=== PATIENT | female | born 1975 | race Caucasian/White ===

== ENCOUNTER 2018-10-27 02:59 | Observation (INO) | payer BC, OTHER ==
[2018-10-27 07:14] LABS: ABSOLUTE BASOPHILS # (AUTO) 0.1 10^3/uL (0.0-0.2); ABSOLUTE EOSINOPHILS # (AUTO) 0.1 10^3/uL (0.0-0.6); ABSOLUTE LYMPHOCYTES (AUTO) 2.2 10^3/uL (0.5-4.7); ABSOLUTE MONOCYTES (AUTO) 0.8 10^3/uL (0.1-1.4); ABSOLUTE NEUT (AUTO) 12.1 10^3/uL (1.7-8.2); BASOPHILS % (AUTO) 0.7 % (0-2); EOSINOPHILS % (AUTO) 0.5 % (0-6); HEMATOCRIT 43.1 % (36.0-47.0); HEMOGLOBIN 14.3 g/dL (12.0-15.5); LYMPHOCYTES % (AUTO) 14.5 % (13-45); MEAN CORPUSCULAR HEMOGLOBIN 29.9 pg (27.0-33.4); MEAN CORPUSCULAR HGB CONC 33.1 g/dL (32.0-36.0); MEAN CORPUSCULAR VOLUME 90 fl (80-97); MONOCYTES % (AUTO) 5.2 % (3-13); PLATELET COUNT 451 10^3/uL (150-450); RED BLOOD COUNT 4.78 10^6/uL (3.72-5.28); RED CELL DISTRIBUTION WIDTH 13.3 % (11.5-14.0); SEGMENTED NEUTROPHILS % (AUTO) 79.1 % (42-78); TOTAL CELLS COUNTED % (AUTO) 100 %; WHITE BLOOD COUNT 15.3 10^3/uL (4.0-10.5)
[2018-10-27 07:32] LABS: ALBUMIN 4.1 g/dL (3.5-5.0); ALKALINE PHOSPHATASE 93 U/L (38-126); ANION GAP 9 (5-19); ASPARTATE AMINO TRANSFERASE 19 U/L (14-36); BILIRUBIN,DIRECT 0.2 mg/dL (0.0-0.4); BILIRUBIN,TOTAL 0.3 mg/dL (0.2-1.3); BLOOD UREA NITROGEN 13 mg/dL (7-20); CALCIUM 9.4 mg/dL (8.4-10.2); CARBON DIOXIDE 25 mmol/L (22-30); CHLORIDE 105 mmol/L (98-107); GLUCOSE 123 mg/dL (75-110); POTASSIUM 4.7 mmol/L (3.6-5.0); TOTAL PROTEIN 6.9 g/dL (6.3-8.2)
[2018-10-27] MEDS ORDERED: NORMAL SALINE 1000 ML 1,000 ML IV ONE ×2 (07:48→12:14)
--- NOTE | 2018-10-27 07:50 | ER Document Report ---
Entered by SOLANGE JENKINS SCRIBE 10/27/18 0741 Acting as scribe for:SHARATH ROMERO MD ED GI/ - General Chief Complaint: Epigastric Pain Stated Complaint: STOMACH PAIN Time Seen by Provider: 10/27/18 07:06 Mode of Arrival: Ambulatory Information source: Patient Notes: Patient is a 43 year old female that presents to the emergency department today with complaints of abdominal pain which began yesterday at 1000. Patient states initially she thought it was "gas buildup" so she took some gas pills which did not relieve her symptoms. Patient states that as the day went on her pain became worse. Patient states her last menstrual period was x2 weeks ago and she is not on control but is sexually active. Patient denies any nausea, diarrhea, or vomiting. Patient mentions that she has not had a bowel movement in x2 days which is not normal for her. TRAVEL OUTSIDE OF THE [place] IN LAST 30 DAYS: No - Related Data Allergies/Adverse Reactions: No Known Allergies Allergy (Unverified 10/27/18 07:59) Past Medical History - General Information source: Patient - Social History Smoking Status: Former Smoker Cigarette use (# per day): No - 30 year 1 ppd history Frequency of alcohol use: Social Drug Abuse: None Occupation: [employer] Lives with: Family Family History: Reviewed & Not Pertinent Past Surgical History: Reports: Hx Section, Other - Right cataract surgery Review of Systems - Review of Systems Constitutional: No symptoms reported EENT: No symptoms reported Cardiovascular: No symptoms reported Respiratory: No symptoms reported Gastrointestinal: Abdominal pain, Constipation. denies: Diarrhea, Nausea, Vomiting Genitourinary: No symptoms reported Female Genitourinary: No symptoms reported Musculoskeletal: No symptoms reported Skin: No symptoms reported Hematologic/Lymphatic: No symptoms reported Neurological/Psychological: No symptoms reported -: Yes All other systems reviewed and negative Physical Exam - Vital signs Vitals: Temp Pulse Resp BP Pulse Ox 98.5 F 85 16 154/86 H 98 10/27/18 03:06 10/27/18 03:06 10/27/18 03:06 10/27/18 03:06 10/27/18 03:06 - Notes Notes: Physical Exam: General: Alert, appears well. HEENT: Normocephalic. Atraumatic. PERRL. Extraocular movements intact. Oropharynx clear. Neck: Supple. Non-tender. Respiratory: No respiratory distress. Clear and equal breath sounds bilaterally. Cardiovascular: Regular rate and rhythm. Abdominal: Obese. Minimal discomfort across RLQ, LLQ, and suprapubic areas, no upper abdominal tenderness. No distension. Normal Bowel Sounds. Back: No gross abnormalities. Extremities: Moves all four extremities. Upper extremities: Normal inspection. Normal ROM. Lower extremities: Normal inspection. No edema. Normal ROM. Neurological: Normal cognition. AAOx4. Normal speech. Psychological: Normal affect. Normal Mood. Skin: Warm. Dry. Normal color. Course - Vital Signs Vital signs: Temp Pulse Resp BP Pulse Ox 98.3 F 71 20 124/79 96 10/27/18 11:49 10/27/18 11:49 10/27/18 11:49 10/27/18 11:49 10/27/18 11:49 - Laboratory Result Diagrams: 10/27/18 07:02 10/27/18 07:02 Laboratory results interpreted by me: 10/27/18 10/27/18 10/27/18 07:02 07:02 07:59 WBC 15.3 H Plt Count 451 H Absolute Neuts (auto) 12.1 H Seg Neutrophils % 79.1 H Glucose 123 H Urine Blood MODERATE H - Diagnostic Test Radiology reviewed: Image reviewed, Reports reviewed - CT scan shows a stone in the gallbladder neck, without evidence of cholecystitis. There is no inflam matory reaction noted associated with the intestines. Gallbladder ultrasound shows the stone in the neck of the gallbladder without gallbladder wall thickening or pericholecystic fluid. - Consults Dr. Petersen Time consulted: 12:15 Consulted provider: will come to ER Discharge - Discharge Clinical Impression: Cholelithiasis Qualifiers: Cholelithiasis location: gallbladder Cholecystitis presence: without cholecystitis Biliary obstruction: without biliary obstruction Qualified Code(s): K80.20 - Calculus of gallbladder without cholecystitis without obstruction Leukocytosis Qualifiers: Leukocytosis type: unspecified Qualified Code(s): D72.829 - Elevated white blood cell count, unspecified Condition: Stable Disposition: ADMITTED INPATIENT Admitting Provider: Surgicalist Unit Admitted: Surgical Floor Scribe Attestation: 10/27/18 07:58 I personally performed the services described in the documentation, reviewed and edited the documentation which was dictated to the scribe in my presence, and it accurately records my words and actions. I personally performed the services described in the documentation, reviewed and edited the documentation which was dictated to the scribe in my presence, and it accurately records my words and actions.
[2018-10-27 08:17] LABS: APPEARANCE,URINE SLIGHTLY-CLOUDY; BILIRUBIN,URINE NEGATIVE (NEGATIVE); COLOR,URINE YELLOW; GLUCOSE, URINE NEGATIVE (NEGATIVE); KETONES,URINE NEGATIVE (NEGATIVE); LEUKOCYTE ESTERASE,URINE NEGATIVE (NEGATIVE); NITRITE,URINE NEGATIVE (NEGATIVE); PROTEIN,URINE NEGATIVE (NEGATIVE); URINE SPECIFIC GRAVITY 1.014; UROBILINOGEN,URINE NEGATIVE mg/dL (<2.0)
--- NOTE | 2018-10-27 09:23 | RADIOLOGY REPORT (SQ) ---
EXAM DESCRIPTION: CT ABD/PELVIS WITH IV ONLY COMPLETED DATE/TIME: 10/27/2018 8:29 am REASON FOR STUDY: Abdominal pain with leukocytosis COMPARISON: None. TECHNIQUE: CT scan of the abdomen and pelvis performed using helical scanning technique with dynamic intravenous contrast injection. No oral contrast. Images reviewed with lung, soft tissue, and bone windows. Reconstructed coronal and sagittal MPR images reviewed. Delayed images for evaluation of the urinary system also acquired. All images stored on PACS. All CT scanners at this facility use dose modulation, iterative reconstruction, and/or weight based d osing when appropriate to reduce radiation dose to as low as reasonably achievable (ALARA). [facility]: Dose Right [facility]: CareDose [facility]: Dose Right [facility]: Teradose 4D [facility]: OnTheGo Platforms CONTRAST TYPE AND DOSE: 100 cc Isovue 370- low osmolar. RENAL FUNCTION: GFR > 60. RADIATION DOSE: CT Rad equipment meets quality standard of care and radiation dose reduction techniq ues were employed. CTDIvol: 11.7 - 13.6 mGy. DLP: 1241 mGy-cm.. LIMITATIONS: None. FINDINGS: LOWER CHEST: No significant findings. No nodules or infiltrates. LIVER: Normal size. No masses. No dilated ducts. SPLEEN: Normal size. No focal lesions. PANCREAS: No masses. No significant calcifications. No adjacent inflammation or peripancreatic fluid collections. Pancreatic duct not dilated. GALLBLADDER: Large stone in the gallbladder neck. No inflammatory changes to suggest cholecystitis. ADRENAL GLANDS: No significant masses or asymmetry. RIGHT KIDNEY AND URETER: No solid masses. No significant calcifications. No hydronephrosis or hyd roureter. LEFT KIDNEY AND URETER: No solid masses. No significant calcifications. No hydronephrosis or hydr oureter. AORTA AND VESSELS: No aneurysm. No dissection. Renal arteries, SMA, celiac without stenosis. RETROPERITONEUM: No retroperitoneal adenopathy, hemorrhage or masses. BOWEL AND PERITONEAL CAVITY: No masses or inflammatory changes. No free fluid or peritoneal masses. APPENDIX: Normal. PELVIS: No mass. No free fluid. Normal bladder. ABDOMINAL WALL: No masses. No hernias. BONES: No significant or acute findings. OTHER: No other significant finding. IMPRESSION: Stone in the gallbladder neck. No inflammatory changes. TECHNICAL DOCUMENTATION: JOB ID: [id number] Quality ID # [id number]: Final reports with documentation of one or more dose reduction techniques (e.g., Au tomated exposure control, adjustment of the mA and/or kV according to patient size, use of iterative reconstruction technique) 2010 [employer]- All Rights Reserved Reading location - IP/workstation name: [email or web address]
--- NOTE | 2018-10-27 11:14 | RADIOLOGY REPORT (SQ) ---
EXAM DESCRIPTION: U/S ABDOMEN LIMITED W/O DOP COMPLETED DATE/TIME: 10/27/2018 10:41 am REASON FOR STUDY: abd pain, stone in GB neck COMPARISON: None. TECHNIQUE: Dynamic and static grayscale images acquired of the abdomen and recorded on PACS. Additio nal selected color Doppler and spectral images recorded. LIMITATIONS: None. FINDINGS: PANCREAS: No masses. Visualized pancreatic duct normal caliber. LIVER: No masses. Echotexture normal. LIVER VASCULATURE: Normal directional flow of the main portal vein and hepatic veins. GALLBLADDER: Stone in the gallbladder neck. Normal wall thickness. No pericholecystic fluid. ULTRASOUND-DETECTED BERGMAN'S SIGN: Negative. INTRAHEPATIC DUCTS AND COMMON DUCT: CBD and intrahepatic ducts normal caliber. No filling defects. INFERIOR VENA CAVA: Normal flow. AORTA: No aneurysm. RIGHT KIDNEY: Normal size. Normal echogenicity. No solid or suspicious masses. No hydronephrosis. No calcifications. PERITONEAL AND RIGHT PLEURAL SPACE: No ascites or effusions. OTHER: No other significant findings. IMPRESSION: Cholelithiasis. No evidence of acute cholecystitis. TECHNICAL DOCUMENTATION: JOB ID: [id number] [address]- All Rights Reserved Reading location - IP/workstation name: [email or web address]
[2018-10-27] MEDS ORDERED: CEFTRIAXONE 1 GM/D5W RTU 1 GM/50 ML RTUPB IV ONE (12:11)
[2018-10-27] MEDS ORDERED: MORPHINE SULFATE 10 MG/ML INJ IV PRN (16:52)
[2018-10-27] MEDS ORDERED: ONDANSETRON HCL INJ/PF 4 MG/2 ML SDV IV PRN (16:52)
--- NOTE | 2018-10-27 17:16 | PDOC H&P ---
History of Present Illness Admission Date/PCP: 10/27/18 13:21 Patient complains of: Right upper quadrant pain History of Present Illness: DALLIN CHANG is a 43 year old female healthy, who presents to the emergency room complaining of right upper quadrant pain intense nausea. The patient underwent a CT scan of the abdomen pelvis and ultrasound of the gallbladder revealed the presence of cholelithiasis with a gallstone impinged in the gallbladder neck. No evidence of acute cholecystitis. Her blood work was within normal limits except for an elevated white blood cell count of 15,000, her liver profile was normal. Past Medical History Psychiatric Medical History: Denies: Depression Past Surgical History Past Surgical History: Reports: Section, Other - Right cataract surgery Social History Lives with: Family Smoking Status: Former Smoker Number of Years Smokin Frequency of Alcohol Use: Rare Hx Recreational Drug Use: No Drugs: None Hx Prescription Drug Abuse: No Family History Family History: Reviewed & Not Pertinent Parental Family History Reviewed: No Children Family History Reviewed: No Sibling(s) Family History Reviewed.: No Medication/Allergy Home Medications: No Home Medications 10/27/18 Allergies/Adverse Reactions: No Known Allergies Allergy (Unverified 10/27/18 07:59) Physical Exam Vital Signs: Temp Pulse Resp BP Pulse Ox 97.5 F 70 20 112/68 96 10/27/18 14:42 10/27/18 14:42 10/27/18 14:42 10/27/18 14:42 10/27/18 11:49 Intake & Output 10/26/18 10/27/18 10/28/18 06:59 06:59 06:59 Intake Total 1129 Balance 1129 Weight 74.8 kg General appearance: PRESENT: no acute distress Head exam: PRESENT: atraumatic Eye exam: PRESENT: EOMI, PERRLA Ear exam: PRESENT: TM's normal bilaterally Mouth exam: PRESENT: moist, neck supple Neck exam: PRESENT: full ROM Pulses: PRESENT: normal carotid pulses GI/Abdominal exam: PRESENT: soft, tenderness - slight in the RUQ Rectal exam: PRESENT: deferred Extremities exam: PRESENT: full ROM Musculoskeletal exam: PRESENT: full ROM Neurological exam: PRESENT: alert, awake, oriented to person Psychiatric exam: PRESENT: appropriate affect Skin exam: PRESENT: warm Results Laboratory Results: 10/27/18 07:02 10/27/18 07:02 10/27/18 10/27/18 10/27/18 07:02 07:02 07:02 WBC 15.3 H RBC 4.78 Hgb 14.3 Hct 43.1 MCV 90 MCH 29.9 MCHC 33.1 RDW 13.3 Plt Count 451 H Seg Neutrophils % 79.1 H Sodium 138.5 Potassium 4.7 Chloride 105 Carbon Dioxide 25 Anion Gap 9 BUN 13 Creatinine 0.77 Est GFR ( Amer) > 60 Glucose 123 H Calcium 9.4 Total Bilirubin 0.3 AST 19 Alkaline Phosphatase 93 Total Protein 6.9 Albumin 4.1 Lipase 75.4 Serum HCG, Qual NEGATIVE Urine Color Urine Appearance Urine pH Ur Specific Galva Urine Protein Urine Glucose (UA) Urine Ketones Urine Blood Urine Nitrite Ur Leukocyte Esterase Urine WBC (Auto) Urine RBC (Auto) 10/27/18 07:59 WBC RBC Hgb Hct MCV MCH MCHC RDW Plt Count Seg Neutrophils % Sodium Potassium Chloride Carbon Dioxide Anion Gap BUN Creatinine Est GFR ( Amer) Glucose Calcium Total Bilirubin AST Alkaline Phosphatase Total Protein Albumin Lipase Serum HCG, Qual Urine Color YELLOW Urine Appearance SLIGHTLY-CLOUDY Urine pH 5.0 Ur Specific Galva 1.014 Urine Protein NEGATIVE Urine Glucose (UA) NEGATIVE Urine Ketones NEGATIVE Urine Blood MODERATE H Urine Nitrite NEGATIVE Ur Leukocyte Esterase NEGATIVE Urine WBC (Auto) 0 Urine RBC (Auto) 3 Impressions: Abdomen/Pelvis CT 10/27/18 07:48 IMPRESSION: Stone in the gallbladder neck. No inflammatory changes. Abdomen Ultrasound 10/27/18 09:37 IMPRESSION: Cholelithiasis. No evidence of acute cholecystitis. Assessment & Plan - Diagnosis (1) Symptomatic cholelithiasis Is this a current diagnosis for this admission?: Yes - Plan Summary Plan Summary: Assessment: 43-year-old healthy female with a history of right upper quadrant pain Ultrasound of the gallbladder and CAT scan of the abdomen both reveal the presence of cholelithiasis with a stone impinging the cystic duct Ultrasound reveals no evidence of cholecystitis Liver profile within normal limits White blood cell count elevated 15,000 Plan: Admit Clear liquid diet followed by n.p.o. after midnight IV fluids Repeat blood work tomorrow morning Ceftriaxone 2 g IV every 24 Flagyl 500 mg IV every 8 Plan laparoscopic cholecystectomy, possible open, possible cholangiogram tomorrow. Procedure, risks, benefits, complications, explained to the patient including the possibility of injury to the liver with bleeding or injury of the bile ducts which may require repair at a tertiary surgical center. The patient understands all the above and decides to proceed.
[2018-10-27] MEDS: NORMAL SALINE 1000 ML 1,000 ML IV PRN ×2 (18:28→21:54)
[2018-10-27] MEDS: METRONIDAZOLE 500 MG/NS RTU 500 MG/100 ML RTUPB IV SCH (18:36)
[2018-10-27] MEDS: FAMOTIDINE INJ/PF 20 MG/2 ML SDV IV SCH (21:54)
[2018-10-28] MEDS: METRONIDAZOLE 500 MG/NS RTU 500 MG/100 ML RTUPB IV SCH ×3 (01:07→17:05)
[2018-10-28 05:57] LABS: ABSOLUTE BASOPHILS # (AUTO) 0.1 10^3/uL (0.0-0.2); ABSOLUTE EOSINOPHILS # (AUTO) 0.2 10^3/uL (0.0-0.6); ABSOLUTE LYMPHOCYTES (AUTO) 2.5 10^3/uL (0.5-4.7); ABSOLUTE MONOCYTES (AUTO) 0.8 10^3/uL (0.1-1.4); ABSOLUTE NEUT (AUTO) 8.4 10^3/uL (1.7-8.2); EOSINOPHILS % (AUTO) 1.3 % (0-6); HEMATOCRIT 38.7 % (36.0-47.0); LYMPHOCYTES % (AUTO) 21.1 % (13-45); MEAN CORPUSCULAR HEMOGLOBIN 30.2 pg (27.0-33.4); MEAN CORPUSCULAR HGB CONC 33.7 g/dL (32.0-36.0); MEAN CORPUSCULAR VOLUME 90 fl (80-97); MONOCYTES % (AUTO) 6.4 % (3-13); PLATELET COUNT 386 10^3/uL (150-450); RED BLOOD COUNT 4.32 10^6/uL (3.72-5.28); RED CELL DISTRIBUTION WIDTH 13.8 % (11.5-14.0); SEGMENTED NEUTROPHILS % (AUTO) 70.2 % (42-78); TOTAL CELLS COUNTED % (AUTO) 100 %
[2018-10-28 06:15] LABS: ALBUMIN 3.4 g/dL (3.5-5.0); ALKALINE PHOSPHATASE 67 U/L (38-126); ANION GAP 7 (5-19); ASPARTATE AMINO TRANSFERASE 19 U/L (14-36); BILIRUBIN,DIRECT 0.2 mg/dL (0.0-0.4); BILIRUBIN,TOTAL 0.9 mg/dL (0.2-1.3); BLOOD UREA NITROGEN 8 mg/dL (7-20); CALCIUM 8.8 mg/dL (8.4-10.2); CARBON DIOXIDE 23 mmol/L (22-30); CHLORIDE 108 mmol/L (98-107); GLUCOSE 91 mg/dL (75-110); POTASSIUM 4.2 mmol/L (3.6-5.0); TOTAL PROTEIN 5.9 g/dL (6.3-8.2)
[2018-10-28] MEDS ORDERED: BUPIVACAINE HCL 0.25 % INJ/PF (2.5 MG/1 ML) 30 ML VIAL ONE (10:03)
[2018-10-28] MEDS: FAMOTIDINE INJ/PF 20 MG/2 ML SDV IV SCH ×2 (10:08→22:03)
[2018-10-28] MEDS ORDERED: MIDAZOLAM 2 MG/2 ML INJ ONE (11:49)
[2018-10-28] MEDS ORDERED: FENTANYL CITRATE INJ/PF 250 MCG/5 ML AMPULE ONE (11:49)
[2018-10-28] MEDS ORDERED: PROPOFOL INJ 200 MG/20 ML VIAL IV ONE (11:49)
[2018-10-28] MEDS ORDERED: CEFTRIAXONE 2 GM/D5W RTU 2 GM/50 ML RTUPB IV SCH (12:00)
[2018-10-28] MEDS ORDERED: DIPHENHYDRAMINE HCL 50 MG/ML VIAL IV PRN (12:59)
[2018-10-28] MEDS ORDERED: MEPERIDINE HCL/PF INJ 25 MG/1 ML DISP.SYRIN IV PRN (12:59)
[2018-10-28] MEDS ORDERED: FENTANYL CITRATE INJ/PF 100 MCG/2 ML AMPUL IV PRN ×3 (12:59)
[2018-10-28] MEDS ORDERED: PROMETHAZINE HCL INJ 25 MG/1 ML VIAL IV PRN ×2 (12:59)
[2018-10-28] MEDS ORDERED: HYDROMORPHONE HCL INJ/PF 2 MG/ML AMPULE IV PRN (13:00)
[2018-10-28] MEDS ORDERED: ONDANSETRON HCL INJ/PF 4 MG/2 ML SDV IV PRN (13:35)
[2018-10-28] MEDS ORDERED: KETOROLAC TROMETHAMINE INJ/PF 30 MG/1 ML SDV IV PRN ×2 (13:35→14:00)
[2018-10-28] MEDS ORDERED: KETOROLAC TROMETHAMINE 10 MG TABLET PO PRN ×2 (13:35→14:00)
--- NOTE | 2018-10-28 13:35 | Operative Report ---
Operative Report DATE OF SURGERY: 10/28/18 PREOPERATIVE DIAGNOSIS: 1. Acute cholecystitis with cholelithiasis. 2. Obesi ty POSTOPERATIVE DIAGNOSIS: Same with right ovarian cyst with hemorrhage OPERATION: 1. laparoscopic lysis of adhesion. 2. Lap scopic cholecystectomy SURGEON: KYLAH MONCADA ANESTHESIA: GA TISSUE REMOVED OR ALTERED: 1 gallbladder with contents COMPLICATIONS: None ESTIMATED BLOOD LOSS: Minimal INTRAOPERATIVE FINDINGS: See below PROCEDURE: After obtaining informed consent, the patient was taken to the operating room. General Anesthesia was induced; the arms were extended, and the abdomen was exposed, and prepped and draped in a sterile fashion. Instrumentation was set up for laparoscopic cholecystectomy. Surgical plan and surgical timeout were conducted. A vertical incision was made above the umbilicus, and a verres needle was inserted uneventfully into the peritoneal cavity. Pneumoperitoneum was established. The verres needle was removed and a 5 mm trocar was inserted and a 5 mm flexible laparoscope was inserted. Visualization of the peritoneal cavity confirmed safe uneventful entry. Under direct visualization 3 additional 5 mm ports were established, one in the subxiphoid position and second in the subcostal position. The patient was placed in slight Trendelenburg position after visualizing the pelvis and noting a small to moderate amount of dilute blood. Photos were taken. Careful visualization of the right adnexa revealed a raw surface of the right ovary, with probable recent cyst rupture. Photos taken. No acute bleeding. The right tube, uterus, left tube, and left ovary appeared normal. There were adhesions between the omentum and the anterior abdominal wall down in the pelvis, and one dominant adhesion was divided with electrocautery under direct visualization in order to facilitate inspection of the uterus. We now repositioned the patient, and proceeded with laparoscopic cholecystectomy. Of note there were a moderately dense but filmy adhesions between the gallbladder inferior surface, infundibulum, duodenum, and gastroduodenal area. These were taken down using combination of sharp and hook electrocautery dissection. We now opened the triangle of Calot by dividing the peritoneal reflection on both the medial and lateral sides of the cystic duct infundibular junction. The critical view was obtained. Photographs were taken. We now milked the cystic duct of any possible stones, clipped the cystic duct approximately 2 times once distally and divided with scissors. Cystic artery was slightly medial and cephalad to the cystic duct and its usual location. It was clipped twice proximally once distally divided with scissors. The gallbladder was now removed from the undersurface of the liver using hook cautery dissection. Graspers were repositioned and the gallbladder was distended in Endobag and removed uneventfully from the abdominal cavity through the super umbilical port site incision. The specimen was examined, then passed off to pathology for permanent analysis. We returned to the peritoneal cavity check for bleeding, and evidence of bile leak, and there was none. We Confirmed satisfactory placement of clips on cystic duct and cystic artery were secured . At this point we felt the operation was complete. The supraumbilical port site was closed with a [id number] 0 Vicryl suture using the disposable suture passer under direct visualization. The subcutaneous tissue was then anesthetized with quarter percent Marcaine Sponge and needle counts are correct. All ports removed under direct visualization pneumoperitoneum evacuated, and 5 mm port wounds closed wi th 3-0 Vicryl suture, benzoin and Steri-Strips. The patient was extubated, and taken to the recovery room in stable condition.
[2018-10-28] MEDS ORDERED: KETOROLAC TROMETHAMINE 60 MG/2 ML SDV ONE (16:04)
[2018-10-28] MEDS ORDERED: SUCCINYLCHOLINE CHLORIDE INJ 200 MG/10 ML VIAL ONE (16:04)
[2018-10-28] MEDS ORDERED: LIDOCAINE 2% INJ-PF (20 MG/ML) 2 ML AMPUL ONE (16:04)
[2018-10-28] MEDS ORDERED: GLYCOPYRROLATE 1 MG/5 ML VIAL ONE (16:04)
[2018-10-28] MEDS ORDERED: ROCURONIUM BROMIDE INJ 50 MG/5 ML VIAL IV ONE (16:04)
[2018-10-28] MEDS ORDERED: NEOSTIGMINE METHYLSULFATE 10 MG/10 ML VIAL ONE (16:04)
[2018-10-28] MEDS ORDERED: ONDANSETRON HCL INJ/PF 4 MG/2 ML SDV ONE (16:04)
[2018-10-28] MEDS ORDERED: DEXAMETHASONE SOD PHOSPHATE INJ 4 MG/1 ML VIAL ONE (16:04)
[2018-10-28] MEDS ORDERED: ACETAMINOPHEN INJ/PF 1000 MG/100 ML SDV IV SCH (18:00)
[2018-10-28 20:05] VITALS: BP 115/62
--- NOTE | 2018-10-31 12:27 | PDOC DISCHARGE SUMMARY ---
General - Admit/Disc Date/PCP Admission Date/Primary Care Provider: 10/27/18 16:57 Discharge Date: 10/31/18 - Additional Information Resuscitation Status: Full Code Discharge Diet: As Tolerated, Clear Liquids Discharge Activity: Activity As Tolerated, Balance Activity w/Rest, No Lifting Over 10 Pounds, Slowly Increase Activity, No tub bath Home Medications: No Home Medications 10/27/18 History of Present Illness History of Present Illness: DALLIN CHANG is a 43 year old female Hospital Course Hospital Course: Patient is a 43-year-old white female presents emergency department complaining of postprandial abdominal pain nausea and anorexia. She was evaluated found by gallbladder ultrasonography to have gallstones. Her liver function studies were essentially unremarkable. She was admitted to the surgical service, kept n.p.o. overnight, then taken to the operating room by Dr. Loo on 10/28/2018. She underwent laparoscopic cholecystectomy and had an uneventful postoperative course. By the evening of the day of surgery she was tolerating a liquid diet, had adequate pain control. She voided without difficulty and was felt to be ready for discharge home. Physical Exam Vital Signs: Temp Pulse Resp BP Pulse Ox 98.6 F 69 16 115/62 99 10/28/18 21:32 10/28/18 21:32 10/28/18 21:32 10/28/18 21:32 10/28/18 21:32 General appearance: PRESENT: no acute distress GI/Abdominal exam: PRESENT: other - All operative incisions dry and dressings intact Results Laboratory Results: 10/28/18 05:38 10/28/18 05:38 Impressions: Abdomen/Pelvis CT 10/27/18 07:48 IMPRESSION: Stone in the gallbladder neck. No inflammatory changes. Abdomen Ultrasound 10/27/18 09:37 IMPRESSION: Cholelithiasis. No evidence of acute cholecystitis. Qualifiers - * PATIENT BEING DISCHARGED WITH ANY OF THE FOLLOWING DIAGNOSIS: No Acute Heart Failure - Is this a Heart Failure Patient?: No Plan Discharge Plan: Patient will be discharged home to care of her family, follow-up with Dr. Loo at [facility] in 1 to 2 weeks; take Tylenol, Motrin or Toradol for breakthrough pain as prescribed. Time Spent: Less than 30 Minutes
== END 2018-10-28 23:09 | disposition home or self-care (01) ==
LOC: ER 02:59 → UNDOADMIN 13:21 → EH 13:21 → 2N 14:15 → EDSTATUS 10-28 11:30 → UNDOADMOB 10-28 16:57 → 2N 10-28 16:57 → UNDODISOB 10-28 23:09 → UNDODISIN 10-28 23:09
PROVIDERS: ADMIT Surgery; ATTEND Surgery
PROC: 0DN94ZZ Release Duodenum, Percutaneous Endoscopic Approach (ICD-10-PCS; 2018-10-28)
PROC: 0FT44ZZ Resection of Gallbladder, Percutaneous Endoscopic Approach (ICD-10-PCS; principal; 2018-10-28 11:30)
DX: K80.10 Calculus of gallbladder with chronic cholecystitis without obstruction (principal); K82.8 Other specified diseases of gallbladder; K66.0 Peritoneal adhesions (postprocedural) (postinfection); E66.9 Obesity, unspecified; N83.201 Unspecified ovarian cyst, right side; Z87.891 Personal history of nicotine dependence
CPT/HCPCS: 99285; 96360; 36415 ×2; 83690; 84703; 85025 ×2; 80053 ×2; 81001; 88304 ×2; 76705; 74177; 00790; 47562; 44180; G0378 ×2; J2250; J3490 ×5; J1100; J1885; J3010; J2270; J2710; J0330; J2405; J7030; J2704; S0028 ×2; J0696; J0131; 790